=== PATIENT | female | born 1960 | race American Indian/Alaskan Native ===

== ENCOUNTER 2021-04-11 11:20 | Emergency (ER) | payer SELFPAY ==
[2021-04-11 13:08] LABS: Basophils # (Auto) 0.1 K/mm3 (0.0-0.1); Basophils % (Auto) 1.4 % (0.0-1.8); Eosinophils # (Auto) 0.2 K/mm3 (0.0-0.4); Eosinophils % (Auto) 2.9 % (0.0-4.3); Hematocrit 21.3 % (30.3-42.9); Hemoglobin 6.5 gm/dl (10.1-14.3); Lymphocytes # (Auto) 1.5 K/mm3 (1.2-5.4); Lymphocytes % (Auto) 23.2 % (13.4-35.0); Mean Corpuscular HGB Conc 31 % (30-34); Mean Corpuscular Volume 82 fl (79-97); Monocytes # (Auto) 0.7 K/mm3 (0.0-0.8); Monocytes % (Auto) 10.7 % (0.0-7.3); Platelet Count 250 K/mm3 (140-440); Red Cell Distribution Width 18.1 % (13.2-15.2)
[2021-04-11 13:23] LABS: Alanine Aminotransferase 10 units/L (7-56); Albumin 3.7 g/dL (3.9-5); Blood Urea Nitrogen 16 mg/dL (7-17); Calcium 9.2 mg/dL (8.4-10.2); Hemolysis Index 10
[2021-04-11 13:29] LABS: BUN/Creatinine Ratio 3
--- NOTE | 2021-04-11 13:42 | Emergency Department Report ---
ED General Adult HPI - General Chief complaint: Medical Clearance Stated complaint: ABNORMAL ;ABS Time Seen by Provider: 04/11/21 12:44 Source: patient Mode of arrival: Ambulatory Limitations: No Limitations - History of Present Illness Initial comments: 60-year-old with a past medical history of hypertension, diabetes, and end-stage renal disease currently on dialysis Wednesday, , Wednesday presents to the hospital with complaints of abnormal hemoglobin. Patient received dialysis yesterday. She received a call today that her hemoglobin was 5.5. Patient denies shortness of breath, lightheadedness, or fatigue. She states she does feel cold at times. She states that she has been diagnosed with iron deficiency anemia in the past. Currently take iron pills. She denies melena, hematochezia, hematemesis, history of GI bleed, or history anemia requiring blood transfusion. she is a new dialysis patient and this was only her third session. Her primary steam tender Dr. Bertrand affiliated with [facility] however, Dr. Whelan is her assigned steam tender at the [facility] dialysis center. Patient does have urine output. - Related Data Allergies Allergy/AdvReac Type Severity Reaction Status Date / Time No Known Allergies Allergy Verified 04/11/21 12:23 ED Review of Systems ROS: Stated complaint: ABNORMAL ;ABS Other details as noted in HPI Comment: All other systems reviewed and negative ED Past Medical Hx - Past Medical History Previous Medical History?: Yes Hx Hypertension: Yes Hx Diabetes: Yes Additional medical history: ESRD ED Physical Exam - General Limitations: No Limitations - Other Other exam information: General: No acute distress Head: Atraumatic Eyes: normal appearance ENT: Moist mucous membranes Neck: Normal appearance, no midline tenderness Chest: Clear to auscultation bilaterally CV: Regular rate and rhythm Abdomen: Soft, normal bowel sounds, nontender, nondistended, no rebound or guarding Rectal: Guaiac negative brown stool Back: Normal inspection Extremity: Normal inspection, full range of motion Neuro: Alert O x 3, no facial asymmetry, speech clear, no gross motor sensory deficit Psych: Appropriate behavior Skin: No rash ED Course Vital Signs 04/11/21 04/11/21 12:22 13:58 Temperature 97.8 F 97.8 F Pulse Rate 71 Respiratory 16 18 Rate Blood Pressure 192/81 184/81 O2 Sat by Pulse 99 Oximetry - Reevaluation(s) Reevaluation #1: 12/31/21 13:49 sat 100% hr 68 04/11/21 15:53 pt s/o to DR Anne tucker to d/c after PRBC transfusion - Consultations Consultation #1: 04/11/21 14:[address] Duarte with [facility] she consulted previous medical record states hemoglobin was 8.4 on March 18 and 10.7 on January 28. She then consulted [facility] nephrology who recommended 1 unit PRBC transfusion and discharged to go home and continue her dialysis as scheduled. ED Medical Decision Making - Lab Data Result diagrams: 04/11/21 12:46 04/11/21 12:46 Lab Results 04/11/21 04/11/21 Range/Units 12:46 12:46 WBC 6.6 (4.5-11.0) K/mm3 RBC 2.60 L (3.65-5.03) M/mm3 Hgb 6.5 L (10.1-14.3) gm/dl Hct 21.3 L (30.3-42.9) % MCV 82 (79-97) fl MCH 25 L (28-32) pg MCHC 31 (30-34) % RDW 18.1 H (13.2-15.2) % Plt Count 250 (140-440) K/mm3 Lymph % (Auto) 23.2 (13.4-35.0) % Hooker % (Auto) 10.7 H (0.0-7.3) % Eos % (Auto) 2.9 (0.0-4.3) % Baso % (Auto) 1.4 (0.0-1.8) % Lymph # (Auto) 1.5 (1.2-5.4) K/mm3 Hooker # (Auto) 0.7 (0.0-0.8) K/mm3 Eos # (Auto) 0.2 (0.0-0.4) K/mm3 Baso # (Auto) 0.1 (0.0-0.1) K/mm3 Seg Neutrophils % 61.8 (40.0-70.0) % Seg Neutrophils # 4.1 (1.8-7.7) K/mm3 Sodium 140 (137-145) mmol/L Potassium 4.1 (3.6-5.0) mmol/L Chloride 100.7 (98-107) mmol/L Carbon Dioxide 28 (22-30) mmol/L Anion Gap 15 mmol/L BUN 16 (7-17) mg/dL Creatinine 5.3 H (0.6-1.2) mg/dL Estimated GFR 8 ml/min BUN/Creatinine Ratio 3 % Glucose 119 H (65-100) mg/dL Calcium 9.2 (8.4-10.2) mg/dL Total Bilirubin < 0.20 (0.1-1.2) mg/dL AST 24 (5-40) units/L ALT 10 (7-56) units/L Alkaline Phosphatase 56 (35-129) units/L Total Protein 6.2 L (6.3-8.2) g/dL Albumin 3.7 L (3.9-5) g/dL Albumin/Globulin Ratio 1.5 % - Medical Decision Making 60-year-old female with end-stage renal disease with worsening anemia requiring blood transfusion. Case was discussed with her [facility] physicians and steam tender. Plan to transfuse 1 unit PRBC and discharged home to continue her dialysis tomorrow as scheduled Critical Care Time: No Critical care attestation.: If time is entered above; I have spent that time in minutes in the direct care o f this critically ill patient, excluding procedure time. ED Disposition Clinical Impression: Anemia, ESRD on dialysis Disposition: 01 HOME / SELF CARE / HOMELESS Is pt being admited?: No Does the pt Need Aspirin: No Condition: Stable Instructions: Dialysis, Blood Transfusion, Adult, Care After, [id number] Additional Instructions: Continue with your dialysis as scheduled. Follow-up with your doctor. Return if symptoms worsen as indicated by your discharge instructions. Referrals: MD juan [Other] - 2-3 Days
[2021-04-11] MEDS ORDERED: SODIUM CHLORIDE 0.9% 500 ML 500 ML IV ONE (14:20)
--- NOTE | 2021-04-11 20:02 | Event Note ---
I asked charge nurse to expedite patient's treatment by placing her in a monitored room in order to initiate transfusion. I explained to patient that she will require to be on a radiographer cardiac catheterization while receiving transfusion. She understands that we have several critical patients in the rooms currently. She was very polite and understanding.
[2021-04-11] MEDS ORDERED: SODIUM CHLORIDE 0.9% 500 ML 500 ML ONE (22:10)
[2021-04-12 00:05] VITALS: BP 176/83
== END 2021-04-12 01:03 | disposition home or self-care (01) ==
LOC: ED 11:20
DX: D64.9 Anemia, unspecified (principal); I12.0 Hypertensive chronic kidney disease with stage 5 chronic kidney disease or end stage renal disease; E11.22 Type 2 diabetes mellitus with diabetic chronic kidney disease; N18.6 End stage renal disease; Z99.2 Dependence on renal dialysis
CPT/HCPCS: 36415; 36430; 80053; 82271; 85025; 86850; 86900; 86901; 86920; 96360; 96361; 99283; J7040; P9016